=== PATIENT | female | born 1940 | race Caucasian/White ===

== ENCOUNTER 2018-01-03 18:02 | Emergency (ER) | payer MEDICARE ==
[2018-01-03 19:34] VITALS: BP 143/54
--- NOTE | 2018-01-03 19:40 | UC ---
Respiratory Complaint HPI - HPI Summary HPI Summary: 77 yo female presents with chest congestion, post nasal drip, sore throat, sinus pain/pressure/congestion, and b/l eye redness. Her symptoms started 4 days ago with sinus symptoms and have progressed to the above. This morning woke up b/l eye redness and crusting. Has been taking mucinex OTC with no relief. Denies fever, chills, SOB, chest pain, abdominal pain, n/v. - History of Current Complaint Chief Complaint: UCRespiratory Stated Complaint: CHEST CONGESTION, EYE IRRITATION, AND SORE THROAT Time Seen by Provider: 01/03/18 19:36 Hx Obtained From: Patient Hx Last Menstrual Period: post menopause Onset/Duration: Gradual Onset Severity Initially: Moderate Severity Currently: Severe Pain Intensity: 7 Pain Scale Used: 0-10 Numeric - Allergies/Home Medications Allergies/Adverse Reactions: Allergies Allergy/AdvReac Type Severity Reaction Status Date / Time bacitracin Allergy Rash Verified 01/03/18 19:35 povidone-iodine Allergy Rash Verified 01/03/18 19:37 Home Medications: Home Medications guaiFENesin [Mucinex] 600 mg PO 01/03/18 [History] PMH/Surg Hx/FS Hx/Imm Hx - Additional Past Medical History Additional PMH: None Previously Healthy: Yes - Surgical History Surgical History: Yes Surgery Procedure, Year, and Place: partial hysterr. tubal ligation. [facility] 1981 - Family History Known Family History: Positive: None - Social History Occupation: Retired Lives: With Family Alcohol Use: Weekly Substance Use Type: None Smoking Status (MU): Never Smoked Tobacco - Immunization History Most Recent Tetanus Shot: 2006 Review of Systems Constitutional: Negative Skin: Negative Eyes: Drainage, Eye Redness ENT: Sore Throat, Ear Ache, Nasal Discharge, Sinus Congestion, Sinus Pain/ Tenderness Respiratory: Cough Cardiovascular: Negative Neurovascular: Negative Neurological: Negative Psychological: Negative All Other Systems Reviewed And Are Negative: Yes Physical Exam - Summary Physical Exam Summary: GENERAL: NAD. Mildly ill appearing. SKIN: No rashes, sores, lesions, or open wounds. HEENT: Head: AT/NC Eyes: EOM intact. B/L Conjunctiva with b/l moderate inflammation and mild yellow purulent drainage. Mild scleral injection. Ears: Hearing grossly normal. TMs intact, no bulging, erythema, or edema. Nose: Nasal mucosa mildly swollen and erythematous with yellow/ clear discharge. Moderate TTP maxillary and frontal sinus. Throat: Posterior oropharynx with post nasal drip and mild erythema. No exudates or tonsillar enlargement. Uvula midline. NECK: Supple. Nontender. No lymphadenopathy. CHEST: CTAB. No r/r/w. No accessory muscle use. Breathing comfortably and in no distress. CV: RRR. Without m/r/g. Pulses intact. Brisk cap refill. NEURO: Alert. CN II-XII grossly intact. PSYCH: Age appropriate behavior. Triage Information Reviewed: Yes Vital Signs: Initial Vital Signs Temp 97.9 F 01/03/18 19:27 Pulse 63 01/03/18 19:27 Resp 20 01/03/18 19:27 BP 143/54 01/03/18 19:27 Pulse Ox 100 01/03/18 19:27 Vital Signs Reviewed: Yes UC Diagnostic Evaluation - Laboratory O2 Sat by Pulse Oximetry: 100 Respiratory Course/Dx - Course Course Of Treatment: Sinusitis. B/L conjunctivitis - Differential Dx/Diagnosis Provider Diagnoses: Sinusitis. B/L conjunctivitis Discharge - Sign-Out/Discharge Documenting (check all that apply): Patient Departure - Discharge Plan Condition: Stable Disposition: HOME Prescriptions: Amoxicillin/Clavulanate TAB* [Augmentin TAB 875*] 875 mg PO BID #20 tab Polymyx/Trimethoprim OPTH* [Polytrim OPHTH*] 1 drop BOTH EYES QID #1 btl Patient Education Materials: Sinusitis (ED) Referrals: Jennifer Ham MD [Primary Care Provider] - Additional Instructions: If you develop a fever, shortness of breath, chest pain, new or worsening symptoms - please call your PCP or go to the ED. Your blood pressure was high at todays visit. Please see your primary provider within 4 weeks for recheck and re-evaluation. - Billing Disposition and Condition Condition: STABLE Disposition: Home
== END 2018-01-03 19:55 | disposition home or self-care (01) ==
LOC: UCEAST 18:02
DX: J32.9 Chronic sinusitis, unspecified (principal); H10.33 Unspecified acute conjunctivitis, bilateral; Z88.3 Allergy status to other anti-infective agents
CPT/HCPCS: 99202; G0463

== ENCOUNTER 2018-01-08 08:28 | Emergency (ER) | payer MEDICARE ==
[2018-01-08 08:45] VITALS: BP 148/68
--- NOTE | 2018-01-08 09:29 | UC ---
Eye Complaint HPI - HPI Summary HPI Summary: WAS SEEN HERE 5 DAYS AGO AND TREATED FOR SINUSITIS WITH AUGMENTIN AND CONJUNCTIVITIS WITH POLYTRIM EYEDROPS. IS HERE TODAY STATING THAT HER EYES ARE FEELING BETTER BUT STILL VERY ITCHY AND WATERY. STOPPED USING THE EYEDROPS YESTERDAY. NO VISUAL DISTURBANCES, HEADACHE OR NAUSEA. RECEIVES ROUTINE EYE CARE AT [facility]. - History of Current Complaint Chief Complaint: UCEye Stated Complaint: RECHECK EYE ISSUE Time Seen by Provider: 01/08/18 09:00 Hx Obtained From: Patient Hx Last Menstrual Period: na Onset/Duration: Gradual Onset, Lasting Days, Still Present Timing: Constant Severity Initially: Moderate Severity Currently: Moderate Pain Intensity: 8 Pain Scale Used: 0-10 Numeric Location of Injury: Conjunctiva Aggravating Factor(s): Nothing Alleviating Factor(s): Nothing Associated Signs And Symptoms: Positive: Drainage (Clear). Negative: Fever - Allergies/Home Medications Allergies/Adverse Reactions: Allergies Allergy/AdvReac Type Severity Reaction Status Date / Time bacitracin Allergy Rash Verified 01/08/18 08:45 nickel Allergy Rash Verified 01/08/18 08:46 povidone-iodine Allergy Rash Verified 01/08/18 08:45 PMH/Surg Hx/FS Hx/Imm Hx Cardiovascular History: Atrial Fibrillation - Surgical History Surgical History: Yes Surgery Procedure, Year, and Place: partial hysterr. tubal ligation. [place] 1981 - Family History Known Family History: Positive: None - Social History Alcohol Use: Weekly Substance Use Type: None Smoking Status (MU): Never Smoked Tobacco - Immunization History Most Recent Tetanus Shot: 2006 Review of Systems Constitutional: Negative Eyes: Drainage, Eye Redness Respiratory: Negative Cardiovascular: Negative Gastrointestinal: Negative All Other Systems Reviewed And Are Negative: Yes Physical Exam Triage Information Reviewed: Yes Appearance: Well-Appearing, No Pain Distress, Well-Nourished Vital Signs: Initial Vital Signs Temp 98.3 F 01/08/18 08:39 Pulse 57 01/08/18 08:39 Resp 20 01/08/18 08:39 BP 148/68 01/08/18 08:39 Pulse Ox 99 01/08/18 08:39 Vital Signs Reviewed: Yes Eyes: Positive: Conjunctiva Inflamed - BILATERAL, Other: - PERRL, EOMI. Negative: Discharge ENT: Positive: Hearing grossly normal Neck: Positive: Supple Respiratory: Positive: No respiratory distress, No accessory muscle use Cardiovascular: Positive: Pulses Normal Abdomen Description: Positive: Soft Musculoskeletal: Positive: No Edema Neurological: Positive: Alert Psychological: Positive: Age Appropriate Behavior Skin: Negative: rashes Eye Complaint Course/Dx - Differential Dx/Diagnosis Provider Diagnoses: ALLERGIC CONJUNCTIVITIS Discharge - Sign-Out/Discharge Documenting (check all that apply): Patient Departure - Discharge Plan Condition: Stable Disposition: HOME Prescriptions: Olopatadine 0.1% OPHTH (NF) [Patanol 0.1% OPHTH (NF)] 1 drop BOTH EYES BID PRN # 1 btl PRN Reason: Allergy Symptoms Patient Education Materials: Conjunctivitis (ED) Referrals: Jennifer Ham MD [Primary Care Provider] - If Needed Additional Instructions: WILL TRY ALLERGY EYE DROPS TO COVER FOR POSSIBLE ALLERGIC COMPONENT TO YOUR CONJUNCTIVITIS. IF YOU DO NOT CONTINUE TO IMPROVE OVER THE NEXT FEW DAYS FOLLOW -UP WITH YOUR EYE DOCTOR AT [facility]. - Billing Disposition and Condition Condition: STABLE Disposition: Home
== END 2018-01-08 09:39 | disposition home or self-care (01) ==
LOC: UCEAST 08:28
DX: H10.13 Acute atopic conjunctivitis, bilateral (principal)
CPT/HCPCS: 99212; G0463